=== PATIENT | female | born 1970 | race Caucasian/White ===

== ENCOUNTER 2017-09-16 06:14 | Inpatient (IN) | payer OTHER ==
[2017-09-15 08:56] VITALS: BMI 27.3
[2017-09-16] MEDS ORDERED: ePHEDrine 50 mg/ml Inj ONE (07:17)
[2017-09-16] MEDS ORDERED: Propofol 10 mg/ml Inj (20 ML) ONE (07:17)
[2017-09-16] MEDS ORDERED: Lidocaine 2% MPF (5 ml) Inj ONE (07:18)
[2017-09-16] MEDS ORDERED: Rocuronium 10 mg/ml (5 ml) ONE ×2 (07:18→09:40)
[2017-09-16] MEDS ORDERED: Sodium Chloride 0.9% 10 ML IV ONE (07:18)
[2017-09-16] MEDS ORDERED: Midazolam 2 MG/2 ML VIAL ONE (07:18)
[2017-09-16] MEDS ORDERED: Lactated Ringer's 1,000 ML IV ONE ×4 (07:20→15:26)
[2017-09-16] MEDS ORDERED: Succinylcholine 200 mg/10 ml Inj IV ONE (07:30)
[2017-09-16] MEDS ORDERED: Neostigmine 1:1000 (1 mg/ml) Inj ONE (07:30)
[2017-09-16] MEDS ORDERED: Bupivacaine 0.5% Inj(30mL) ONE (07:33)
[2017-09-16] MEDS ORDERED: Lactated Ringer's 500 ML IV ONE ×2 (08:30→14:05)
[2017-09-16] MEDS ORDERED: Dexamethasone 4 mg/1 ml ONE (08:47)
[2017-09-16] MEDS ORDERED: Sodium Chloride 0.9% 1,000 ML IV ONE (09:00)
[2017-09-16] MEDS ORDERED: Labetalol 5mg/ml (4ml) ONE (09:16)
[2017-09-16] MEDS ORDERED: Morphine 1 mg/ml preservative-free Inj(Duramorph) ONE (09:22)
[2017-09-16] MEDS ORDERED: Sevoflurane - Inhalation Anesthetic Liq (250 ml) ONE (09:41)
[2017-09-16] MEDS ORDERED: Vasopressin 20 Units/ml Inj ONE (09:41)
[2017-09-16] MEDS ORDERED: HEMOSTATIC MATRIX 10 ML DIS.NEEDLE TOP ONE (12:25)
[2017-09-16] MEDS ORDERED: Methylene Blue 10 mg/mL(10ml) IV ONE (13:11)
[2017-09-16] MEDS ORDERED: cefTRIAXone (Rocephin) 1 gm Inj ONE (13:14)
[2017-09-16] MEDS ORDERED: Oxycodone/Acetaminophen 5/325 mg Tab PO PRN (14:10)
[2017-09-16] MEDS ORDERED: HYDROmorphone 0.5 mg/0.5 ml ISec IVP PRN (14:13)
[2017-09-16] MEDS ORDERED: Acetaminophen IV 1,000 MG in IV SUPPLIES 100 ML IVPB ONE (14:30)
[2017-09-16] MEDS ORDERED: Acetaminophen IV IVPB ONE (14:50)
[2017-09-16] MEDS: Ciprofloxacin 400mg/200ml D5W 400 MG/200 ML BAG IVPB SCH (21:07)
[2017-09-16] MEDS: Lactated Ringer's 1,000 ML IV SCH (23:44)
[2017-09-17 06:40] LABS: HEMOGLOBIN 11.8 g/dL (12.0-16.0); MEAN CORPUSCULAR HEMOGLOBIN 32.4 pg (27.0-31.0); MEAN CORPUSCULAR HGB CONC 33.7 g/dL (33.0-37.0); RBC 3.64 Mil/uL (3.80-5.20); WHITE BLOOD COUNT 8.6 K/uL (4.8-10.8)
[2017-09-17] MEDS: Ciprofloxacin 400mg/200ml D5W 400 MG/200 ML BAG IVPB SCH (08:50)
[2017-09-17] MEDS: Lactated Ringer's 1,000 ML IV SCH (08:52)
--- NOTE | 2017-09-17 11:14 | CP.PCM.PN ---
Subjective - Date & Time of Evaluation Date of Evaluation: 09/17/17 Time of Evaluation: 11:12 - Subjective Subjective: Patient c/o of lower abdomenal pressure otherwise good Objective - Vital Signs/Intake and Output Vital Signs (last 24 hours): Temp Pulse Resp BP Pulse Ox 99.9 F H 91 H 22 107/70 99 09/17/17 08:40 09/17/17 08:40 09/17/17 08:40 09/17/17 08:40 09/17/17 08:40 Intake and Output: 09/17/17 09/17/17 06:59 18:59 Intake Total 1940 Output Total 1900 Balance 40 - Medications Medications: Current Medications Heparin Sodium (Porcine) (Heparin) 5,000 units SC Q12 CAMILA PRN Reason: Protocol Last Admin: 09/17/17 08:51 Dose: 5,000 units Lactated Ringer's (Lactated Ringer's) 1,000 mls @ 0 mls/hr IV .Q0M CAMILA PRN Reason: Per Protocol Last Admin: 09/17/17 08:52 Dose: 125 mls/hr Ciprofloxacin (Cipro 400mg/200ml Dsw) 400 mg in 200 mls @ 200 mls/hr IVPB Q12 CAMILA PRN Reason: Protocol Last Admin: 09/17/17 08:50 Dose: 200 mls/hr Morphine Sulfate (Morphine Biopharmaceutical Rep 1 Mg/Ml) 0 mg IV PRN PRN; Protocol PRN Reason: Pain, severe (8-10) Last Admin: 09/16/17 15:35 Dose: 30 mg Ondansetron HCl (Zofran Inj) 4 mg IVP Q8 PRN PRN Reason: Nausea/Vomiting Last Admin: 09/16/17 23:39 Dose: 4 mg Oxycodone/Acetaminophen (Percocet 5/325 Mg Tab) 1 tab PO Q4 PRN PRN Reason: Pain, moderate (4-7) Stop: 09/19/17 14:11 - Labs Labs: 09/17/17 05:30 - Constitutional Appears: Well - Eye Exam Eye Exam: Normal appearance - Respiratory Exam Respiratory Exam: NORMAL BREATHING PATTERN - GI/Abdominal Exam GI & Abdominal Exam: Soft, Tenderness - Exam External exam: NORMAL EXTERNAL EXAM - Extremities Exam Extremities Exam: Normal Inspection (no rebound or guarding and payne urine clear) Assessment and Plan - Assessment and Plan (Free Text) Assessment: S/P Robotic Assisted Hysterectomy Bilateral salpingectomy Plan: D/C to home if stable Pelvic rest 8-10 weeks F/U w Dr. thorne in 1 weeks Percocet and Motrin PRN
[2017-09-17 12:54] VITALS: PULSE 85; RESP 17; TEMP 98.9; O2SAT 100
[2017-09-17 12:55] VITALS: BP 102/63
--- NOTE | 2017-09-19 08:47 | OP ---
PROCEDURE DATE: 09/16/2017 PREOPERATIVE DIAGNOSES: Symptomatic fibroid uterus, menorrhagia, and dysmenorrhea. POSTOPERATIVE DIAGNOSES: Symptomatic fibroid uterus, menorrhagia, and dysmenorrhea, pending pathology. PROCEDURE: Robotic-assisted hysterectomy, bilateral salpingectomy, cystoscopy, and bladder repair. SURGEON: Gilda Forbes MD BOARDMARKER: Dr. Cortes. TYPE OF ANESTHESIA: Via general endotracheal tube anesthesia. ANESTHESIA ADMINISTERED BY: Dr. Gonzalez. ESTIMATED BLOOD LOSS: 150 mL FLUID REPLACEMENT: Lactated Ringer's. DRAINS: St to gravity. COMPLICATIONS: Bladder injury. FINDINGS: Uterus enlarged approximately 15 weeks' gestational size in height and with approximately 10 cm in width, irregular in contour. There was a large fundal fibroid associated with posterior fibroid, which appear to be pedunculated, but it was actually attached in full body to the posterior part of the uterus obliterating sitting in the posterior cul-de-sac. The were couple of other smaller 3 cm size fibroids budding off the sides of the uterus and multiple smaller fibroids within the body of the uterus, too many to count. Ovaries bilaterally within normal limits. Tubes grossly within normal limits. Upon doing the cystoscopy, a 4-mm opening was noted in the dome of the bladder. INDICATIONS: The patient is a 46-year-old with symptomatic fibroid uterus. DESCRIPTION OF PROCEDURE: After informed consent was obtained and signed, the patient was brought to the operating room and placed in the supine position. Once general anesthesia was successfully induced, the patient was placed in a dorsal lithotomy position, prepped and draped in usual sterile fashion. After evaluation under anesthesia and above findings noted, a bivalve speculum was placed. The cervix was grasped with single-tooth tenaculum, tented forward, and the cervix was then dilated. The VCare device was then put into place, insufflated and then attention turned to the pre-prepped abdominal area. All vaginal was removed from pre-prepped abdominal area about 4 fingerbreadths above the umbilicus. An 8-mm horizontal incision was created. This incision was port. The Veress needle was placed with ease and abdominal cavity was insufflated with CO2 distention medium. A Veress needle was removed. An 8-mm trocar was then placed, confirmed by robotic camera noted to be in place. No injuries noted. Attention then turned to the remaining ports 2 in the right, 2 in the left, 2 ports on the patient's left where 8-mm size ports and under direct visualization after Marcaine injection, all ports were placed under direct visualization on the patient's leg, there was a 5 mm and another 8 mm robotic arm was placed under direct visualization with ease and no trauma. Once all ports were end, the robot was then docked. Attention then turned to the consult, so at this point in time, I went to the surgeon to consult. Dr. Cortes loaded the robot with all other instrument and release it into my control. At this point in time, Dr. Cortes elevated the heavy weighted uterus because of the regular nature of the uterus. The procedure was actually done in parts initially started with the round ligament bilaterally, which was transected and cut along with the utero-ovarian ligament, which was cauterized with PK and transected with monopolar miguel. This was carried down to the broad ligament anteriorly and a bladder flap was created anteriorly and bladder flap was then displaced also the uterus. At this time, anterior fibroid was noted, budding off of the front of the uterus and the lower uterine segment. Attention then turned to the patient's contralateral side, which was also cauterized with the PK on the ovarian ligament and the tubo-ovarian ligament as well as round ligament. All cauterized and transected simultaneously. Once this was done, the ovary and the tube pulled away from the uterus, so attached to the sidewall. Bladder flap was creating anteriorly, entering the broad ligament anteriorly, meeting the contralateral side. Once the bladder flap was created using the PK, the bladder was then pushed distally. Attention then turned to the tears of the cuff, which was difficult to see because of the fibroid anteriorly, so at this point laterally, uterine arteries were then transected and ligated in a subsequent sterile fashion with the PK follow transection with the monopolar miguel. This was done bilaterally. Once the uterine artery was secured and attention was then turned towards the fibroids. At this time, I felt it was best to remove the fibroids in order to debulked the uterus in order to remove it vaginally. So, the largest posterior fibroid was then transected off using monopolar miguel and the PK sutures. Once the posterior part of the fibroid was removed, it was displaced in the patient's left lateral cut by where the spleen is. Attention then turned towards the largest part of the fibroid inside the body of the uterus. At this point, the ProGrasp was removed and the robotic tenaculum was then deployed. Using the monopolar miguel, I then proceeded with doing myomectomy with the help of Dr. Cortes with constant suctioning and helping to stabilize the uterus in its entirety. I made a vertical incision down to the posterior wall of the uterus. The fibroid was identified, grasped with the tenaculum, tented forward and began using the monopolar miguel and the PK cautery to excise and skeletonize out the myoma. Once the myoma was then transected at its base, it was then removed from the uterus. This significantly deflated the uterus; however, the uterus still had multiple fibroids within it. The fibroid was then also extracted anteriorly from the uterus in order to reveal the uterus anteriorly. At this point in time posteriorly, the cuff was then entered and then circumferentially, the cervix was then excised out. The uterus in its entirety was excised out in a circumferential manner using VCare cuff as a guide. Once it was extracted completely, the uterus was then delivered through the vaginal area. Please note Dr. Cortes had to excise the myoma vaginally in order to remove the uterus because it was still too bulky to exit. After Dr. Cortes extracted 4 more myomas, the uterus was able then to be removed. Once this was then excised, attention turned to the other 3 myomas that was still internal, I passed into Dr. Cortes to view the vaginal area, tenaculum was placed and Dr. Cortes extracted each myoma also. Dr. Cotres debulked each myoma on its way out because of their size. Once Dr. Cortes got all the myomas out debulking vaginally, then I proceeded with removing the fallopian tubes using the PK and monopolar miguel. Once removed from its attachment leaving the ovaries behind, I proceeded to pass the tubal structures to Dr. Cortes who removed it out vaginally. Once this was completed, Dr. Cortes then removed the tenaculum, also we placed the ProGrasp and removed by monopolar miguel and we placed them with suture cut as well as deploying 12-inch VCare lock suture. Once in place, then I proceeded to closed the vaginal cuff using VCare lock suture. Once the cuff was closed in the running fashion, the suture was then removed and the suture was then given to Dr. Cortes who then removed the remaining excess suture. At this point in time, I proceeded with cystoscopy and during the cystoscopy, the bladder was then soaked with normal saline distention medium, evaluated. No injury noted. Fluids exiting the ureters, then attention turned and noted at the dome bladder on the left, there was 2 mm opening noted, 2 to 4 in its entirety. Once scope, it looked about 2 mm. Water was flooded and scope was retracted, and then at this point in time, I returned back to the surgeon's consult and at which point in time, Dr. Cortes release 2-0 Vicryl suture. At this point, the bladder opening which was between 2 to 4 mm in size was then closed using 0 Vicryl on a running stitch. A second imbricating level suture was then used to close the layer closure on top of that. At this point in time, Dr. Cortes filled the bladder with Methylin blue solution. No bladder leaks or blue was noted. The area appeared to be intact. At this point in time, Dr. Cortes then returned back to the system port and he removed that we left the remaining of the instrument, the suture, and undocked the robot and which point in time, we both proceeded to close the ports using 3-0 Monocryl suture and Dermabond glue. Once all equipment was removed from the robot, the patient tolerated the procedure well. All sponge, needle and equipment count were correct x3. The patient went to recovery room with St catheter in place, in stable condition. Gilda Forbes MD
== END 2017-09-17 15:00 | disposition home or self-care (01) | DRG 743 ==
LOC: H.OPSURG 06:14 → H.PEDS 14:37
PROVIDERS: ADMIT Specialist; ATTEND Specialist
PROC: 0TJB8ZZ Inspection of Bladder, Via Natural or Artificial Opening Endoscopic (ICD-10-PCS; 2017-09-16)
PROC: 8E0W4CZ Robotic Assisted Procedure of Trunk Region, Percutaneous Endoscopic Approach (ICD-10-PCS; 2017-09-16)
PROC: 0UT9FZZ Resection of Uterus, Via Natural or Artificial Opening With Percutaneous Endoscopic Assistance (ICD-10-PCS; principal; 2017-09-16 07:45)
PROC: 0UT7FZZ Resection of Bilateral Fallopian Tubes, Via Natural or Artificial Opening With Percutaneous Endoscopic Assistance (ICD-10-PCS; 2017-09-16 07:45)
PROC: 0TQB8ZZ Repair Bladder, Via Natural or Artificial Opening Endoscopic (ICD-10-PCS; 2017-09-16 07:45)
DX: D25.1 Intramural leiomyoma of uterus (principal); N72 Inflammatory disease of cervix uteri; N80.0 Endometriosis of uterus; N92.0 Excessive and frequent menstruation with regular cycle; N94.6 Dysmenorrhea, unspecified; N88.8 Other specified noninflammatory disorders of cervix uteri